=== PATIENT | male | born 2000 | race African-American/Black ===

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

== ENCOUNTER 2019-08-05 21:43 | Emergency (ER) | payer MEDICAID, OTHER ==
[~2019-08-05] VITALS: Ht 165 cm; Wt 66.4 kg
--- NOTE | 2019-08-05 22:09 | ED Neck-Back Pain/Injury ---
General Chief Complaint: Trauma-Non Activation Stated Complaint: FALL/HEAD AND BACK PAIN Nursing Triage Note: pt presents to ed with complaints of back and head pain after tripping when walking and falling backwards onto a concrete floor. pt denies loc. pt reports his back spasmed up when walking which caused him to trip. Nursing Sepsis Screen: No Definite Risk History of Present Illness Date Seen by Provider: Aug 05, 2019 Time Seen by Provider: 22:00 Initial Comments This is a 18-year-old male who comes to the ER reporting neck and head pain after experiencing a ground level fall 1 hour ago while at work. The patient reports his back spasmed and caused him to trip on his own foot and fell backwards hitting his head and back onto a concrete floor. He denies loss of consciousness. Reports neck pain 8/10 and headache 7/10. Denies nausea, vomiting or lightheadedness. Denies any difficulty walking, paresthesias or radicular symptoms in his upper or lower extremities. Location: C-Spine, Other (Occipital ) Timing/Duration: 1 Hour Severity: Mild Pain/Injury Location: Back, Head, Neck Method of Injury: Fall Modifying Factors: Improves With Rest Associated Symptoms: muscle spasms; No weakness, No numbness in legs/feet, No tingling in legs/feet, No sensory/motor loss, No lower back pain Allergies and Home Medications Allergies Coded Allergies: Penicillins (Unverified Allergy, Mild, RASH, 03/31/09) Patient Home Medication List Home Medication List Reviewed: Yes Review of Systems Constitutional: no symptoms reported EENTM: see HPI Respiratory: no symptoms reported Cardiovascular: no symptoms reported Gastrointestinal: no symptoms reported Musculoskeletal: back pain, neck pain Skin: no symptoms reported Psychiatric/Neurological: Headache All Other Systems Reviewed Negative Unless Noted: Yes Past Ykdyddo-Iqxmfl-Enajrv Hx Past Med/Social Hx: Reviewed Nursing Past Med/Soc Hx Patient Social History 2nd Hand Smoke Exposure: Yes (BOTH PARENTS) Recent Foreign Travel: No Contact w/Someone Who Travel: No Recent Infectious Disease Expo: No Physical Abuse: No Sexual Abuse: No Mistreated: No Fear: No Immunizations Up To Date Tetanus Booster (TDap): Less than 5yrs Date of Influenza Vaccine: May 29, 2012 Seasonal Allergies Seasonal Allergies: No Past Medical History Surgeries: Yes (NASAL, frenulectomy) Adenoidectomy, Nose Respiratory: Yes Asthma Cardiac: No Neurological: No Reproductive Disorders: No Genitourinary: No Gastrointestinal: No Musculoskeletal: No Endocrine: No HEENT: No Cancer: No Psychosocial: Yes (MOOD DISORDER) Integumentary: No Blood Disorders: No Family Medical History Cancer, Diabetes Physical Exam Vital Signs Vital Signs - First Documented 08/05/19 22:01 Temp 36.7 Pulse 62 Resp 20 B/P (MAP) 114/76 (89) Pulse Ox 100 Capillary Refill : Less Than 3 Seconds Height, Weight, BMI Height: 5'5" Weight: 135lbs. 0.0oz. 61.949087mh; 24.00 BMI Method:Stated General Appearance: No Apparent Distress, WD/WN HEENT: PERRL/EOMI, Normal ENT Inspection, Other (head normocephalic with no areas of tenderness or swelling) Neck: Full Range of Motion, Normal Inspection; No Limited Range of Motion; Tender Lateral (left); No Tender Midline Cardiovascular: Regular Rate, Rhythm, No Edema, Normal Peripheral Pulses Respiratory: Chest Non Tender, Lungs Clear, Normal Breath Sounds, No Accessory Muscle Use, No Respiratory Distress Gastrointestinal: Normal Bowel Sounds, Non Tender, Soft Extremity: Normal Capillary Refill, Normal Inspection, Normal Range of Motion, Non Tender, Other (full range of motion to the lumbar spine, steady gait, able to ambulate on toes and heels. Negative straight leg raising sign bilaterally. Full range of motion to his upper extremities, power V/V biceps, triceps and hand wrapper selector. ) Neurologic/Psychiatric: Alert, Oriented x3, No Motor/Sensory Deficits, Normal Mood/Affect Skin: Normal Color, Warm/Dry Progress/Results/Core Measures Results/Orders My Orders Orders - DAVID VELAZQUEZ Cervical Spine 3 Views Or Less (08/05/19 22:04) Acetaminophen Tablet/Caplet (Tylenol T (08/05/19 22:15) Medications Given in ED Current Medications Medications Dose Ordered Sig/Andres Route Start Time Stop Time Status Last Admin Dose Admin Acetaminophen 650 mg ONCE ONCE PO 08/05/19 22:15 08/05/19 22:16 DC 08/05/19 22:43 650 MG Vital Signs/I&O 08/05/19 22:01 Temp 36.7 Pulse 62 Resp 20 B/P (MAP) 114/76 (89) Pulse Ox 100 Blood Pressure Mean: 89 POS Diagnostic Imaging Diagonstic Imaging: Xray Plain Films/CT/US/NM/MRI: c-spine Comments No acute abnormal findings, will be read by radiology tomorrow. Reviewed: Reviewed by Me Departure Impression Primary Impression: Fall from slip, trip, or stumble Qualified Codes: W01.0XXA - Fall on same level from slipping, tripping and stumbling without subsequent striking against object, initial encounter Additional Impression: Neck pain Disposition: HOME, SELF-CARE Condition: Improved Departure-Patient Inst. Decision time for Depature: 22:45 Referrals: NO,LOCAL PHYSICIAN (PCP/Family) Primary Care Physician Patient Instructions: Cervical Muscle Strain (DC), Low Back Pain (DC), Upper Back Pain (DC) Add. Discharge Instructions: Alternate heat and ice to your neck and low back for 20 minutes every 2 hours while awake. You may alternate between Tylenol 650 mg and ibuprofen 600 mg every 4 hours for pain. Follow-up at occupational health or with a primary care provider if symptoms are not improving or worsen. Return to the emergency department for vision changes persistent nausea and vomiting, seizure activity or headaches. All discharge instructions reviewed with patient and/or family. Voiced understanding. DAVID VELAZQUEZ Aug 05, 2019 22:09 POS
[2019-08-05] MEDS ORDERED: ACETAMINOPHEN 325 MG TABLET PO ONE (22:15)
[2019-08-05 22:55] VITALS: BP 123/69
--- NOTE | 2019-08-06 06:52 | Diagnostic Imaging Report ---
CLINICAL INDICATION: Patient with back and head pain after tripping while walking and falling backwards onto a concrete floor. EXAM: X-ray of the neck soft tissues, four views. COMPARISON: X-ray of the neck soft tissues dated 01/11/2017. FINDINGS: Cervical spine is normal in alignment with no acute fracture or dislocation. The intervertebral disc heights and vertebral body heights are within normal limits. There is no prevertebral soft tissue swelling. The odontoid views are unremarkable. IMPRESSION: Unremarkable x-ray of the cervical spine. Dictated by: Dictated on workstation # [id number]
== END 2019-08-05 22:55 | disposition home or self-care (01) ==
LOC: EDUNIT# 21:43 → ER 21:45
DX: M54.2 Cervicalgia (principal); J45.909 Unspecified asthma, uncomplicated; F39 Unspecified mood [affective] disorder; Z88.0 Allergy status to penicillin; Z77.22 Contact with and (suspected) exposure to environmental tobacco smoke (acute) (chronic); Z90.49 Acquired absence of other specified parts of digestive tract; W01.198A Fall on same level from slipping, tripping and stumbling with subsequent striking against other object, initial encounter; Y92.59 Other trade areas as the place of occurrence of the external cause
CPT/HCPCS: 72040

== ENCOUNTER 2021-10-28 00:01 | Emergency (ER) | payer BC ==
--- NOTE | 2021-10-28 01:17 | ED Back Pain ---
General Chief Complaint: Back Problems Stated Complaint: KIDNEY PAIN Nursing Triage Note: PT TO ER WITH FRIEND WITH C/O KIDNEY PAIN AFTER DRINKING TONIGHT. PT STATES HE IS "SEVERELY INTOXICATED". PT STATES THIS PAIN STARTED WHILE AT THE BAR Source of Information: Patient Exam Limitations: No Limitations History of Present Illness Date Seen by Provider: Oct 28, 2021 Time Seen by Provider: 00:11 Allergies and Home Medications Allergies Coded Allergies: Penicillins (Unverified Allergy, Mild, RASH, 03/31/09) Patient Home Medication List Oxcarbazepine (Trileptal) 150 Mg Tablet, 150 MG PO, (Reported) Entered as Reported by: TOY BUI on 04/12/15 1804 Past Vbghcfw-Kagiwy-Lrmhdc Hx Patient Social History Tobacco Use?: Yes Tobacco type used: Cigarettes Smoking Status: Current Someday Smoker Use of E-Cig and/or Vaping dev: Yes E-Cig or Vaping type used: Nicotine Substance use?: Yes Substance type: Marijuana Substance frequency: Couple times a week Alcohol Use?: Yes Alcohol type: Hard Liquor Alcohol Frequency: Couple times a week Pt feels they are or have been: No Immunizations Up To Date Tetanus Booster (TDap): Less than 5yrs Influenza Vaccine Up-to-Date: No; Not Current First/Initial COVID19 Vaccinat: SEP 2021 Second COVID19 Vaccination Ronak: OCT 2021 Seasonal Allergies Seasonal Allergies: No Past Medical History Surgeries: Yes (NASAL, frenulectomy) Adenoidectomy, Nose Respiratory: Yes Asthma Cardiac: No Neurological: No Reproductive Disorders: No Genitourinary: No Gastrointestinal: No Musculoskeletal: No Endocrine: No HEENT: No Cancer: No Psychosocial: Yes (MOOD DISORDER) Integumentary: No Blood Disorders: No Family Medical History Cancer, Diabetes Physical Exam Vital Signs Vital Signs - First Documented 10/28/21 00:20 Temp 36.4 Pulse 60 Resp 14 B/P (MAP) 119/74 (89) Pulse Ox 98 O2 Delivery Room Air Capillary Refill : Height, Weight, BMI Height: 5'5" Weight: 135lbs. 0.0oz. 61.955416hh; 24.00 BMI Method:Stated Progress/Results/Core Measures Results/Orders My Orders Orders - FINA FREED MD Ua Culture If Indicated (10/28/21 00:11) Vital Signs/I&O 10/28/21 00:20 Temp 36.4 Pulse 60 Resp 14 B/P (MAP) 119/74 (89) Pulse Ox 98 O2 Delivery Room Air Blood Pressure Mean: 89 Departure Impression Primary Impression: Low back pain Qualified Codes: M54.50 - Low back pain, unspecified Additional Impression: Alcohol intoxication Qualified Codes: F10.929 - Alcohol use, unspecified with intoxication, unspecified Disposition: HOME, SELF-CARE Condition: Stable Departure-Patient Inst. Decision time for Depature: 01:16 Referrals: NO,LOCAL PHYSICIAN (PCP/Family) Primary Care Physician Patient Instructions: Low Back Pain in Adults, Alcohol Intoxication ED Add. Discharge Instructions: Drink plenty of water. Return to the emergency room if you have persistent or worsening symptoms. Avoid drinking alcohol to intoxication. All discharge instructions reviewed with patient and/or family. Voiced understanding. FINA FREED MD Oct 28, 2021 01:17
[2021-10-28 01:23] VITALS: BP 119/74
== END 2021-10-28 01:23 | disposition home or self-care (01) ==
LOC: EDUNIT# 00:01 → ER 00:08
DX: M54.50 Low back pain, unspecified (principal); F10.129 Alcohol abuse with intoxication, unspecified; J45.909 Unspecified asthma, uncomplicated; F17.210 Nicotine dependence, cigarettes, uncomplicated
CPT/HCPCS: 99281

== ENCOUNTER 2022-02-07 22:41 | Emergency (ER) | payer BC ==
[~2022-02-07] VITALS: Ht 165 cm; Wt 72.6 kg
[2022-02-07] MEDS ORDERED: CETI10TA17 (22:51)
[2022-02-07] MEDS ORDERED: ACETAMINOPHEN 500 MG TAB (TYLENOL) PO ONE (23:00)
[2022-02-07] MEDS ORDERED: IBUPROFEN 600 MG (MOTRIN) TAB PO ONE (23:00)
--- NOTE | 2022-02-07 23:03 | ED Head Injury ---
General Chief Complaint: Head/Cervical Problems Stated Complaint: NECK AND BACK PAIN Nursing Triage Note: c/o neck/upper back pain after trying to do a backflip 02/06/22 and landing wrong. pt reports landing on head. Source: patient Exam Limitations: no limitations History of Present Illness Date Seen by Provider: February 07, 2022 Time Seen by Provider: 22:43 Initial Comments 21-year-old male with no pertinent past medical history coming in due to neck pain. He was attempting a back flip yesterday around 7 PM when he landed straight on his head causing neck pain. Denies any weakness or numbness. Says he is having some difficulty turning his head today and pain is persisted so that is why he came delayed to the emergency department. Denies any headache, vision changes, weakness, numbness, chest pain, shortness of breath, abdominal pain, mid or lower back pain, or any other concerns. Has been ambulating since the incident. Has not had any medicines today to help with the pain. The pain is moderate, constant, sharp, worse with movement, better with rest. Allergies and Home Medications Allergies Coded Allergies: Penicillins (Unverified Allergy, Mild, RASH, 03/31/09) Patient Home Medication List Home Medication List Reviewed: Yes Cetirizine HCl (Cetirizine HCl) 10 Mg Tablet, (Reported) Entered as Reported by: VALENTÍN NOGUERA on 02/07/22 2711 Last Action: New Order Discontinued Medications Oxcarbazepine (Trileptal) 150 Mg Tablet, 150 MG PO, (Reported) Discontinued Reason: No Longer Taking Entered as Reported by: TOY BUI on 04/12/15 1804 Last Action: Discontinued Review of Systems Review of Systems Constitutional: No fever Eyes: Denies Blurred Vision Ears, Nose, Mouth, Throat: no symptoms reported Respiratory: no symptoms reported Cardiovascular: no symptoms reported Gastrointestinal: no symptoms reported Genitourinary: no symptoms reported Musculoskeletal: neck pain Skin: no symptoms reported Psychiatric/Neurological: No Symptoms Reported Endocrine: No Symptoms Reported Hematologic/Lymphatic: No Symptoms Reported All Other Systems Reviewed Negative Unless Noted: Yes Past Qscfasj-Iaycei-Fdvaha Hx Patient Social History Tobacco Use?: Yes Substance use?: Yes Substance type: Marijuana Alcohol Use?: Yes Alcohol Frequency: Once in a while Immunizations Up To Date Tetanus Booster (TDap): Less than 5yrs First/Initial COVID19 Vaccinat: SEP 2021 Second COVID19 Vaccination Ronak: OCT 2021 Seasonal Allergies Seasonal Allergies: No Past Medical History Surgery/Hospitalization HX: asthma, mood d/o, frenulectomy, adenoidectomy Surgeries: Yes (NASAL, frenulectomy) Adenoidectomy, Nose Respiratory: Yes Asthma Cardiac: No Neurological: No Reproductive Disorders: No Genitourinary: No Gastrointestinal: No Musculoskeletal: No Endocrine: No HEENT: No Cancer: No Psychosocial: Yes (MOOD DISORDER) Integumentary: No Blood Disorders: No Family Medical History Cancer, Diabetes Physical Exam Vital Signs Vital Signs - First Documented 02/07/22 22:46 Temp 36.2 Pulse 70 Resp 16 B/P (MAP) 105/73 (84) Pulse Ox 100 O2 Delivery Room Air Capillary Refill : Less Than 3 Seconds Height, Weight, BMI Height: 5'5" Weight: 135lbs. 0.0oz. 61.154366ca; 26.00 BMI Method:Stated General Appearance: WD/WN, no apparent distress HEENT: PERRL/EOMI, normal ENT inspection, pharynx normal Neck: full range of motion, supple, normal inspection, other (paraspinal tenderness in the neck, can range about 45 degrees each direction but with pain) Cardiovascular: regular rate, rhythm, no edema, no murmur Respiratory: chest non-tender, lungs clear, normal breath sounds, no respiratory distress, no accessory muscle use Gastrointestinal: normal bowel sounds, non tender, soft; No distended, No guarding, No rebound Back: normal inspection, no CVA tenderness, no vertebral tenderness Extremities: normal range of motion, non-tender, normal inspection, no pedal edema, no calf tenderness, normal capillary refill Psychiatric: alert Crainal Nerves: normal hearing, normal speech, PERRL Coordination/Gait: normal finger to nose, normal gait Motor/Sensory: no motor deficit, no sensory deficit Skin: normal color, warm/dry Lymphatic: no adenopathy Progress/Results/Core Measures Results/Orders My Orders Orders - KRIS GALLEGO MD Ct Cervical Spine Wo (02/07/22 22:51) Ibuprofen Tablet (Motrin Tablet) (02/07/22 23:00) Acetaminophen Tablet (Tylenol Tablet) (02/07/22 23:00) Medications Given in ED Current Medications Medications Dose Ordered Sig/Andres Route Start Time Stop Time Status Last Admin Dose Admin Acetaminophen 1,000 mg ONCE ONCE PO 02/07/22 23:00 02/07/22 23:01 DC 02/07/22 22:58 1,000 MG Ibuprofen 600 mg ONCE ONCE PO 02/07/22 23:00 02/07/22 23:01 DC 02/07/22 22:58 600 MG Vital Signs/I&O 02/07/22 22:46 Temp 36.2 Pulse 70 Resp 16 B/P (MAP) 105/73 (84) Pulse Ox 100 O2 Delivery Room Air Blood Pressure Mean: 84 Progress Progress Note : Progress Note 21-year-old male with above history coming in after landing on his head attempting a back flip with neck pain. ABCs were intact and vitals were stable on presentation. Physical exam reassuring including a normal neurologic exam. Less likely this is a serious fracture given the delay in presentation greater than 24 hours with no neurologic sequela. CT cervical spine negative for acute findings. He was given ibuprofen and Tylenol for pain here which did help some. I believe he is stable for discharge with outpatient follow-up. He was sent home with strict return precautions Diagnostic Imaging Diagonstic Imaging: CT (c spine) Comments Negative for fracture or subluxation per the overnight radiology read Reviewed: Reviewed Night [facility] Study Departure Impression Primary Impression: Pain of neck with recent traumatic injury Disposition: HOME, SELF-CARE Condition: Stable Departure-Patient Inst. Decision time for Depature: 00:35 Referrals: NO,LOCAL PHYSICIAN (PCP/Family) Primary Care Physician Patient Instructions: Neck Pain ED Add. Discharge Instructions: Fortunately nothing is broken or dislocated in your neck. I recommend trying a heating pad to relax it. I sent a prescription anti-inflammatory to your pharmacy which you can take for the next few days. You can take Tylenol with this if you would like. Do not mix it with ibuprofen or naproxen Scripts Ketorolac Tromethamine (Ketorolac Tromethamine) 10 Mg Tablet 10 MG PO Q8H PRN for PAIN-MODERATE (5-7) for 4 Days, #12 TAB Prov: KRIS GALLEGO MD 02/08/22 Work/School Note: Work Release Form Date Seen in the Emergency Department: Feb 08, 2022 Return to Work: Feb 09, 2022 Restrictions: No Restrictions KRIS GALLEGO MD February 07, 2022 23:03
[2022-02-08] MEDS ORDERED: KETO10TA PO (00:37)
[2022-02-08 00:40] VITALS: BP 110/69
--- NOTE | 2022-02-08 07:27 | Diagnostic Imaging Report ---
PROCEDURE: CT cervical spine without contrast. TECHNIQUE: Multiple contiguous axial images were obtained through the cervical spine without the use of intravenous contrast. Sagittal and coronal reformations were then performed. Auto Exposure Controls were utilized during the CT exam to meet ALARA standards for radiation dose reduction. INDICATION: Failed back flip with neck pain. FINDINGS: Sagittal and coronal reformatted images show good alignment. Body height is well-maintained. The odontoid intact. The atlantoaxial joint appears normal. Facets are in good alignment. There are no fractures. Soft tissues appear normal. IMPRESSION: Normal CT cervical spine. These findings are in agreement with the preliminary report. Dictated by: Dictated on workstation # [id number]
== END 2022-02-08 00:40 | disposition home or self-care (01) ==
LOC: EDUNIT# 22:41 → ER 22:44
DX: M54.2 Cervicalgia (principal); Z72.0 Tobacco use; Z28.311 Partially vaccinated for COVID-19
CPT/HCPCS: 72125

== ENCOUNTER 2023-01-11 20:27 | Emergency (ER) | payer SELFPAY ==
[~2023-01-11] VITALS: Ht 165 cm; Wt 61.5 kg
[~2023-01-11 20:27] MED LIST changes: +CETI10TA17; +KETO10TA PO
--- NOTE | 2023-01-11 20:31 | ED Cardiac General ---
History of Present Illness General Stated Complaint: LIGHT HEADEDNESS|CHEST PAINS Source: patient Exam Limitations: no limitations History of Present Illness Date Seen by Provider: January 11, 2023 Time Seen by Provider: 20:31 Initial Comments Patient is a 22-year-old male who presents to the emergency room with a chief complaint of feeling lightheaded and dizzy, chest pressure and sharp pains. He was at work this evening at the onset of symptoms. Initially rated his disco mfort at a "6 or 7". It was nonradiating. He did feel a little nauseous. Was not sweaty or short of breath. Has never had pain like this before. He does not know family history but does live at home with mom, litzy and other family members. He denies any daily medications. No personal history of known heart disease. Does not regularly visit doctors. At the time of presentation he still a little nauseous but his pain is improving and now a "4 5" Patient does state that he has been under increased stress at work. He only sleeps 3 to 4 hours at night. Has tried melatonin for insomnia but has not been able to get much relief. Does not know the dose of melatonin that he uses. Denies excessive caffeine use. No illicit substances. Timing/Duration: 1 hour Severity: moderate Location: central Activities at Onset: activity (At work) Prior CP/Workup: no prior chest pain, no prior cardiac workup NTG SL [employer]: No ASA po [employer]: No Associated Systoms: Chest Pain, Nausea/Vomiting Allergies and Home Medications Allergies Coded Allergies: Penicillins (Unverified Allergy, Mild, RASH, 03/31/09) Patient Home Medication List Home Medication List Reviewed: Yes Cetirizine HCl (Cetirizine HCl) 10 Mg Tablet, (Reported) Entered as Reported by: VALENTÍN NOGUERA on 02/07/22 6173 Discontinued Medications Ketorolac Tromethamine (Ketorolac Tromethamine) 10 Mg Tablet, 10 MG PO Q8H PRN for PAIN-MODERATE (5-7) Discontinued Reason: No Longer Taking Prescribed by: KRIS GALLEGO on 02/08/22 0037 Last Action: Discontinued Review of Systems Review of Systems Constitutional: see HPI EENTM: No Symptoms Reported Respiratory: No Symptoms Reported Cardiovascular: Chest Pain Gastrointestinal: Nausea Genitourinary: No Symptoms Reported Musculoskeletal: no symptoms reported Skin: no symptoms reported Psychiatric/Neurological: Other (Insomnia) All Other Systems Reviewed Negative Unless Noted: Yes Past Cnyubyr-Bjcifg-Mshnwb Hx Immunizations Up To Date Tetanus Booster (TDap): Less than 5yrs First/Initial COVID19 Vaccinat: SEP 2021 Second COVID19 Vaccination Ronak: OCT 2021 Seasonal Allergies Seasonal Allergies: No Past Medical History Surgery/Hospitalization HX: asthma, mood d/o, frenulectomy, adenoidectomy Surgeries: Yes (NASAL, frenulectomy) Adenoidectomy, Nose Respiratory: Yes Asthma Cardiac: No Neurological: No Reproductive Disorders: No Genitourinary: No Gastrointestinal: No Musculoskeletal: No Endocrine: No HEENT: No Cancer: No Psychosocial: Yes (MOOD DISORDER) Integumentary: No Blood Disorders: No Family Medical History Cancer, Diabetes Physical Exam Vital Signs Vital Signs - First Documented 01/11/23 20:28 Temp 36.8 Pulse 72 Resp 16 B/P (MAP) 131/75 (93) Pulse Ox 97 O2 Delivery Room Air Capillary Refill : Height, Weight, BMI Height: 5'5" Weight: 135lbs. 0.0oz. 61.475805ht; 26.00 BMI Method:Stated General Appearance: No Apparent Distress, WD/WN HEENT: PERRL/EOMI Neck: Supple Respiratory: Lungs Clear, Normal Breath Sounds, No Accessory Muscle Use, No Respiratory Distress Cardiovascular: Regular Rate, Rhythm, Normal Peripheral Pulses, Other (Mild chest wall tenderness mid sternum just to the left of center) Gastrointestinal: Normal Bowel Sounds, Non Tender, Soft Extremity: Normal Capillary Refill, Normal Inspection, Normal Range of Motion, Non Tender, No Calf Tenderness, No Pedal Edema Neurologic/Psychiatric: Alert, Oriented x3, No Motor/Sensory Deficits, Normal Mood/Affect Skin: Normal Color, Warm/Dry Progress/Results/Core Measures Results/Orders Lab Results Laboratory Tests Test 01/11/23 20:55 Range/Units Sodium Level 140 135-145 MMOL/L Potassium Level 3.5 L 3.6-5.0 MMOL/L Chloride Level 107 98-107 MMOL/L Carbon Dioxide Level 22 21-32 MMOL/L Anion Gap 11 5-14 MMOL/L Blood Urea Nitrogen 15 7-18 MG/DL Creatinine 1.00 0.60-1.30 MG/DL Estimat Glomerular Filtration Rate 108 BUN/Creatinine Ratio 15 Glucose Level 111 H 70-105 MG/DL Calcium Level 9.0 8.5-10.1 MG/DL My Orders Orders - EFRAIN LUU MD Ekg Tracing (01/11/23 20:31) Chest 1 View, Ap/Pa Only (01/11/23 21:14) Basic Metabolic Panel (01/11/23 21:14) Vital Signs/I&O 01/11/23 01/11/23 20:28 22:03 Temp 36.8 36.5 Pulse 72 69 Resp 16 16 B/P (MAP) 131/75 (93) 127/68 Pulse Ox 97 99 O2 Delivery Room Air Room Air Progress Progress Note : Progress Note Patient seen and evaluated by me. Evaluation today includes physical exam, EKG, basic metabolic panel, chest x-ray single view. Pertinent physical exam findings well-developed well-nourished -Congolese male in no acute distress. Mild tenderness to the chest wall. Heart is regular, lungs are clear. No focal neurologic deficits. Vital signs are stable. Differential diagnosis based on history and physical exam, musculoskeletal chest wall pain, anxiety/panic. Independent evaluation of the chest x-ray by me shows normal mediastinum, no effusions, infiltrates. Normal bony structures. EKG shows normal sinus rhythm without ectopy or ST segment change. Basic metabolic panel is within normal limits. He has complete relief of symptoms during his stay. Discussion with patient about other xvdj-say-segreel remedies for insomnia. Encouraged to follow-up with a primary care physician regarding his insomnia and routine preventative medical care. He verbalized understanding. Return precautions provided in both verbal and written format. All questions are sought and answered. Patient is stable for discharge. Initial ECG Impression Date: January 11, 2023 Initial ECG Impression Time: 20:40 Initial ECG Rate: 68 Initial ECG Rhythm: Normal Sinus Initial ECG Intervals: Normal Initial ECG Impression: Normal Diagnostic Imaging Diagonstic Imaging: Xray Plain Films/CT/US/NM/MRI: chest Comments [facility], [place] NAME: CHILO REESE MED REC#: [id number] PT STATUS: REG ER : 2000 PHYSICIAN: EFRAIN LUU MD ADMIT DATE: 01/11/23/ER Signed Date of Exam:01/11/23 CHEST 1 VIEW, AP/PA ONLY CHEST 1 VIEW, AP/PA ONLY INDICATION: chest pain. COMPARISON: None. FINDINGS: Lungs: Normal lung volume. No focal consolidation. . Pleura: No pleural effusion or pneumothorax. Heart and Mediastinum: Cardiac silhouette and pulmonary vascularity are normal. Osseous Structures and Soft Tissues: No acute osseous abnormality. Normal soft tissues. IMPRESSION: No acute cardiopulmonary process. Dictated by: Dictated on workstation # [id number] Dict: 01/11/232143 Trans: 01/11/232144 [facility] [place] [id number] Interpreted by: RAJINDER MASCORRO DO Electronically signed by: RAJINDER MASCORRO DO 01/11/232144 Departure Impression Primary Impression: Atypical chest pain Additional Impression: Insomnia disorder Qualified Codes: G47.00 - Insomnia, unspecified Disposition: HOME, SELF-CARE Condition: Improved Departure-Patient Inst. Decision time for Depature: 22:00 Referrals: [facility] [place],LOCAL PHYSICIAN (PCP) Primary Care Physician Patient Instructions: Chest Pain That Is Not Caused by the Heart (DC), Tips for Getting Better Sleep Add. Discharge Instructions: Drink plenty of fluids to stay well hydrated. Research some tips for getting better sleep, you need at least 7 hours a night for best health. If you have a return of chest pain, especially with fever, nausea, shortness of breath or sweating return to the Emergency Department for re-evaluation. Please follow up with a primary care provider. Work/School Note: Work Release Form Date Seen in the Emergency Department: January 11, 2023 Return to Work: January 12, 2023 EFRAIN LUU MD January 11, 2023 20:31
[2023-01-11 21:28] LABS: POTASSIUM 3.5 MMOL/L (3.6-5.0)
--- NOTE | 2023-01-11 21:46 | Diagnostic Imaging Report ---
CHEST 1 VIEW, AP/PA ONLY INDICATION: chest pain. COMPARISON: None. FINDINGS: Lungs: Normal lung volume. No focal consolidation. . Pleura: No pleural effusion or pneumothorax. Heart and Mediastinum: Cardiac silhouette and pulmonary vascularity are normal. Osseous Structures and Soft Tissues: No acute osseous abnormality. Normal soft tissues. IMPRESSION: No acute cardiopulmonary process. Dictated by: Dictated on workstation # [id number]
[2023-01-11 22:03] VITALS: BP 127/68
== END 2023-01-11 22:05 | disposition home or self-care (01) ==
LOC: EDUNIT# 20:27 → ER 20:28
DX: R07.89 Other chest pain (principal); G47.00 Insomnia, unspecified
CPT/HCPCS: 36415; 71045; 80048; 93005